=== PATIENT | male | born 2000 | race Two or more races ===

== ENCOUNTER 2024-10-26 19:42 | Emergency (ER) | payer SELFPAY ==
[~2024-10-26] VITALS: Ht 170.2 cm; Wt 78.0 kg
[2024-10-26 19:50] VITALS: TEMP 98.5
[2024-10-26 22:53] VITALS: BP 141/93; PULSE 75; RESP 18; O2SAT 99
[2024-10-26] MEDS: SULFAMETHOX/TRIMETH DS 800-160 MG/TABLET PO ONE (23:12)
[2024-10-26] MEDS: CEPHALEXIN MONOHYDRATE 500 MG CAPSULE PO ONE (23:12)
[2024-10-26] MEDS: PERTUSS(ACELL),DIPH,TET/PF 0.5 ML SYRINGE [ADULT] IM. ONE (23:13)
[2024-10-26] MEDS: LIDOCAINE 1% 10 ML VIAL SQ ONE (23:25)
[2024-10-27] MEDS ORDERED: CEPH-558 PO (00:22)
[2024-10-27] MEDS ORDERED: IBUP-1492 PO (00:22)
[2024-10-27] MEDS ORDERED: SULF-261 PO (00:22)
== END 2024-10-27 00:40 | disposition home or self-care (01) ==
LOC: EMS 19:42
DX: S60.412A Abrasion of right middle finger, initial encounter (principal); L08.9 Local infection of the skin and subcutaneous tissue, unspecified; F12.90 Cannabis use, unspecified, uncomplicated; F17.210 Nicotine dependence, cigarettes, uncomplicated; X58.XXXA Exposure to other specified factors, initial encounter; Y93.89 Activity, other specified; Y92.89 Other specified places as the place of occurrence of the external cause; Y99.8 Other external cause status
CPT/HCPCS: 99284; 10160; 73130; 90715; 90471; J3490